=== PATIENT | female | born 1955 | race Asian ===

== ENCOUNTER → 2023-09-15 06:28 | Day surgery (SDC) | payer OTHER, SELFPAY ==
[2023-09-15 13:02] LABS: Glucose - Point of Care 124 mg/dl (70-99)
== END ==
LOC: GI 06:28
PROVIDERS: ATTENDING PHYSICIAN Specialist; FAMILY PHYSICIAN Family Medicine
DX: Z12.11 Encounter for screening for malignant neoplasm of colon (principal); D12.3 Benign neoplasm of transverse colon; K57.30 Diverticulosis of large intestine without perforation or abscess without bleeding; K64.8 Other hemorrhoids; Z86.010 Personal history of colon polyps
CPT/HCPCS: 45385; 88305; 82962

== ENCOUNTER → 2023-09-29 10:03 | Outpatient (REF) | payer OTHER, SELFPAY | LOC: RAD 10:03 | PROVIDERS: ATTENDING PHYSICIAN Urology; FAMILY PHYSICIAN Family Medicine | DX: N39.3 Stress incontinence (female) (male) (principal); N32.81 Overactive bladder; M62.89 Other specified disorders of muscle; N81.10 Cystocele, unspecified | CPT/HCPCS: 76770 ==

== ENCOUNTER 2023-10-06 06:07 | Outpatient (RCR) | payer OTHER, SELFPAY | END 2023-10-06 23:59 | disposition home or self-care (01) | LOC: RPT 06:07 | PROVIDERS: ATTENDING PHYSICIAN Urology; FAMILY PHYSICIAN Family Medicine | DX: N39.3 Stress incontinence (female) (male) (principal); N32.81 Overactive bladder; M62.89 Other specified disorders of muscle; N81.10 Cystocele, unspecified; N39.41 Urge incontinence; R27.8 Other lack of coordination; Z73.6 Limitation of activities due to disability | CPT/HCPCS: 97162; 97530 ==

== ENCOUNTER 2023-11-10 06:35 | Outpatient (RCR) | payer OTHER, SELFPAY | END 2023-11-10 23:59 | disposition home or self-care (01) | LOC: RPT 06:35 | PROVIDERS: ATTENDING PHYSICIAN Urology; FAMILY PHYSICIAN Family Medicine | DX: N39.3 Stress incontinence (female) (male) (principal); N32.81 Overactive bladder; M62.89 Other specified disorders of muscle; N81.10 Cystocele, unspecified; N39.41 Urge incontinence; R27.8 Other lack of coordination | CPT/HCPCS: 97112; 97530 ==

== ENCOUNTER 2023-12-08 07:59 | Outpatient (RCR) | payer OTHER, SELFPAY | END 2023-12-08 23:59 | disposition home or self-care (01) | LOC: RPT 07:59 | PROVIDERS: ATTENDING PHYSICIAN Urology; FAMILY PHYSICIAN Family Medicine | DX: N39.46 Mixed incontinence (principal); N32.81 Overactive bladder; M62.89 Other specified disorders of muscle; N81.10 Cystocele, unspecified; R27.8 Other lack of coordination; Z73.6 Limitation of activities due to disability | CPT/HCPCS: 97112; 97530 ==

== ENCOUNTER 2023-12-22 06:42 | Outpatient (RCR) | payer OTHER, SELFPAY | END 2023-12-22 09:11 | disposition home or self-care (01) | LOC: RPT 06:42 | PROVIDERS: ATTENDING PHYSICIAN Urology; FAMILY PHYSICIAN Family Medicine | DX: N39.46 Mixed incontinence (principal); N32.81 Overactive bladder; M62.89 Other specified disorders of muscle; N81.10 Cystocele, unspecified; R27.8 Other lack of coordination; Z73.6 Limitation of activities due to disability | CPT/HCPCS: 97530 ==

== ENCOUNTER → 2024-04-16 19:04 | Outpatient (REF) | payer OTHER, SELFPAY | LOC: WDC 19:04 | PROVIDERS: ATTENDING PHYSICIAN Family Medicine | DX: Z12.31 Encounter for screening mammogram for malignant neoplasm of breast (principal) | CPT/HCPCS: 77063; 77067 ==

== ENCOUNTER → 2025-06-21 13:32 | Outpatient (REF) | payer OTHER, SELFPAY | LOC: WDC 13:32 | PROVIDERS: ATTENDING PHYSICIAN Family Medicine | DX: Z12.31 Encounter for screening mammogram for malignant neoplasm of breast (principal) | CPT/HCPCS: 77063; 77067 ==